=== PATIENT | female | born 1965 | race Caucasian/White ===

== ENCOUNTER 2024-03-03 11:11 | Emergency (ER) | payer BC, SELFPAY ==
[2024-03-03 11:39] VITALS: BP 113/81; PULSE 109; RESP 18; TEMP 35.8; O2SAT 97; BMI 28.1
[2024-03-03] MEDS: ONDANSETRON ODT 4 MG TAB PO (11:48)
[2024-03-03 12:26] LABS: PCR FLU A Negative PCR FLU A (Negative); PCR FLU B Negative PCR FLU B (Negative); PCR RSV Negative PCR RSV (Negative); SARS PCR* Negative SARS-CoV-2 (Negative)
--- NOTE | 2024-03-03 12:59 | ED.GENADULT ---
HPI - General Adult General Chief complaint: Nausea/Vomiting Stated complaint: Vomiting, body aches, congestion Time Seen by Provider: 03/03/24 12:19 Source: patient Mode of arrival: ambulatory Limitations: no limitations History of Present Illness HPI narrative: 58-year-old female coming in today complaining of vomiting for the last 4 days. She has been able to keep down fluids for the last day and a half for so but has not been eating. She denies diarrhea. She feels sweaty but denies any measured fevers. She denies any chest or abdominal pain. She is not short of breath. She has some mild abdominal discomfort with vomiting. She complains of body aches. Denies any blood in her vomitus. No skin rashes. She she denies dysuria, increased urinary frequency or urgency. Related Data Home Medications ?Medication ?Instructions ?Recorded ?Confirmed aripiprazole 10 mg tablet 10 mg PO DAILY 03/03/24 03/03/24 buspirone 10 mg tablet 10 mg PO 3XD 03/03/24 03/03/24 dextroamphetamine-amphetamine ER 1 cap PO QAM 03/03/24 03/03/24 25 mg 24hr capsule,extend release gabapentin 800 mg tablet 800 mg PO 3XD 03/03/24 03/03/24 hydroxyzine HCl 25 mg tablet 25 - 50 mg PO 3XD PRN 03/03/24 03/03/24 lisdexamfetamine 40 mg capsule mg PO 03/03/24 lisinopril 10 mg tablet 10 mg PO DAILY 03/03/24 03/03/24 rosuvastatin 10 mg tablet 10 mg PO QPM 03/03/24 03/03/24 trazodone 100 mg tablet 100 - 300 mg PO QPM PRN 03/03/24 03/03/24 venlafaxine 150 mg mg PO 03/03/24 capsule,extended release 24 hr Previous Rx's ?Medication ?Instructions ?Recorded ondansetron HCl 4 mg tablet 4 mg PO TID PRN nausea and 03/03/24 vomiting #10 tabs Allergies Allergy/AdvReac Type Severity Reaction Status Date / Time No Known Drug Allergies Allergy Verified 03/03/24 11:37 Review of Systems Status of ROS: Reports: 10 or more systems reviewed and unremarkable except as noted in History and below PFSH PFS Social History Smoking Status: Current every day smoker Second hand tobacco smoke exposure: Yes How often do you have a drink containing alcohol: 2-4 times a month AUDIT-C Alcohol total score: 2 Non-prescribed substance use: denies use service: No Exam Narrative: Exam Narrative: Well-nourished well-developed patient in no acute distress. Alert and oriented. Answers questions appropriately. Mood and affect are appropriate. Thoughts are goal oriented and rational. No tangential or magical thinking noted. Patient speaks in full sentences without needing to catch her breath. HEENT: Normocephalic atraumatic. Pupils are equally round reactive to light. Extraocular muscles are intact. Conjunctivae are moist without any icterus noted. Moist mucous membranes. Posterior pharynx is normal. Neck is soft without any lymphadenopathy or thyromegaly. No masses are appreciated. Cardiovascular: Slightly tachycardic, no murmurs. Lungs: Clear to auscultation bilaterally no wheezes rhonchi or rales are appreciated. Patient takes deep breaths without any discomfort. Abdomen: Soft and nontender nondistended with normal bowel sounds. No guarding or rebound. Extremities: Bilateral lower extremities are without edema. Skin: Well perfused without any obvious rashes. Const: Vital Signs, click to edit/add: Vital Signs - 24 hr 03/03/24 11:39 Temperature 96.5 F L Pulse Rate [Pulse Oximeter] 109 H Respiratory Rate 18 Blood Pressure [Ri ght Upper Arm] 113/81 Pulse Oximetry 97 Oxygen Delivery Me thod Room Air Course Course ED Course: IV established and patient received Zofran and 1 L of normal saline. Triple swab negative. Normal lactate. CBC shows normal white cell count, hemoglobin is slightly elevated at 17,000 thousand. Chemistries are unremarkable aside from low carbon dioxide at 12. LFTs are minimally elevated. Normal lipase. UA is suggestive of dehydration with dark yellow urine and 3+ ketones, 3+ bilirubin 2+ protein. Patient was feeling better after treatment. Vital Signs Vital signs: Initial Vital Signs Temperature 96.5 F L 03/03/24 11:39 Temperature Source Temporal Artery Scan 03/03/24 11:39 Pulse Rate 109 H 03/03/24 11:39 Respiratory Rate 18 03/03/24 11:39 Blood Pressure 113/81 03/03/24 11:39 Blood Pressure Mean 91 03/03/24 11:39 Pulse Oximetry 97 03/03/24 11:39 Oxygen Delivery Method Room Air 03/03/24 11:39 Vital Signs Temperature 96.5 F L 03/03/24 11:39 Pulse Rate 109 H 03/03/24 11:39 Respiratory Rate 18 03/03/24 11:39 Blood Pressure 113/81 03/03/24 11:39 Pulse Oximetry 97 03/03/24 11:39 Oxygen Delivery Method Room Air 03/03/24 11:39 Temperature 96.5 F L 03/03/24 11:39 Pulse Rate 109 H 03/03/24 11:39 Respiratory Rate 18 03/03/24 11:39 Blood Pressure 113/81 03/03/24 11:39 Pulse Oximetry 97 03/03/24 11:39 Oxygen Delivery Method Room Air 03/03/24 11:39 Medications Administered Medications: Discontinued Medications Generic Name Dose Route Start Last Admin Trade Name Freq PRN Reason Stop Dose Admin Sodium Chloride 1,000 mls @ 1,000 mls/hr 03/03/24 12:30 03/03/24 13:36 0.9 % Sodium Chloride 1000 Ml IV 03/03/24 13:29 Infused .Q1H YOSELIN Infusion Ondansetron HCl 4 mg 03/03/24 11:45 03/03/24 11:48 Ondansetron Odt 4 Mg Tab PO 03/03/24 11:46 4 mg ONCE ONE Administration Medical Decision Making MDM Narrative Medical decision making narrative: 58-year-old female with vomiting, likely viral enteritis. Patient will be sent home on Zofran. We discussed frequent small volume hydration throughout the day and reasons for follow-up. Lab Data Lab results reviewed: Yes I reviewed the patient's lab results Labs: Lab Results 03/03/24 03/03/24 03/03/24 Range/Units 11:43 13:05 13:45 WBC 7.69 (4.50-11.00) K/uL RBC 4.76 (4.00-5.20) m/uL Hgb 17.0 H (12.0-16.0) gm/dL Hct 49.1 (33.0-51.0) % MCV 103 H (80-100) fL MCH 36 H (26-34) pg MCHC 35 (32-36) gm/dL RDW Coeff of Dominique 12.6 (11.5-15.5) % Plt Count 253 (140-440) K/uL Neut % (Auto) 68.1 (42.0-72.0) % Lymph % (Auto) 20.2 (20-44) % [place] % (Auto) 8.8 (0.0-11.0) % Eos % (Auto) 1.7 (0.0-7.0) % Baso % (Auto) 0.7 (0.0-3.0) % Neut # (Auto) 5.24 (1.7-7.0) K/uL Lymph # (Auto) 1.55 (0.90-2.90) K/uL [place] # (Auto) 0.70 (0.00-0.90) K/UL Eos # (Auto) 0.13 (0.00-0.50) K/uL Baso # (Auto) 0.05 (0.00-0.30) K/uL Abs Immat Gran (auto) 0.04 (0.00-0.30) K/uL Imm/Tot Granulo (auto) 0.5 % Sodium 136 (135-149) mmol/L Potassium 4.2 (3.6-5.1) mmol/L Chloride 110 (96-114) mmol/L Carbon Dioxide 12 L (20-32) mmol/L Anion Gap 14 (7-15) mEq/L BUN 14 (7-30) mg/dL Creatinine 0.6 (0.5-1.5) mg/dL Estimated Creat Clear 105.51 Estimated GFR 103 ml/min Glucose 113 (60-115) mg/dL Lactate 1.1 (0.5-1.9) mmol/L Calcium 10.5 (8.4-10.6) mg/dL Total Bilirubin 0.9 (0.1-1.5) mg/dL Direct Bilirubin 0.4 (0.0-0.5) mg/dL AST 51 H (12-35) U/L ALT 67 H (4-35) U/L Alkaline Phosphatase 127 (40-150) U/L Total Protein 7.8 (6.0-8.3) g/dL Albumin 4.8 (3.3-5.0) g/dL Lipase 82 (23-300) U/L Urine Color Dark yellow (Yellow) Urine Appearance Clear (Clear) Urine pH 6.0 (5.0-8.5) Ur Specific [place] 1.025 (1.000-1.030) Urine Protein 2+ A (Negative) Urine Glucose (UA) Negative (Negative) Urine Ketones 3+ A (Negative) Urine Blood Trace-lysed A (Negative) Urine Nitrite Negative (Negative) Urine Bilirubin 3+ A (Negative) Urine Urobilinogen 0.2 (0.2-1.0) Ur Leukocyte Esterase Negative (Negative) Urine RBC 0-2 (0-2) Urine WBC 0-2 (0-5) Ur Squamous Epith Cells Few (None-Few) Urine Bacteria Few A (None) SARS-CoV-2 (PCR) Negative SARS-CoV-2 (Negative) Influenza Type A (PCR) Negative PCR FLU A (Negative) Influenza Type B (PCR) Negative PCR FLU B (Negative) RSV (PCR) Negative PCR RSV (Negative) Discharge Plan Discharge Clinical Impression: Gastroenteritis, Dehydration Patient Disposition: Home, Self-Care Condition: Stable Instructions: Dehydration (ED), Gastroenteritis (ED) Additional Instructions: Okay to take Zofran as needed for nausea and vomiting. Prescriptions: New ondansetron HCl 4 mg tablet 4 mg PO TID PRN (Reason: nausea and vomiting) Qty: 10 0RF No Action venlafaxine 150 mg capsule,extended release 24hr PO gabapentin 800 mg tablet 800 mg PO 3XD trazodone 100 mg tablet 100 - 300 mg PO QPM PRN buspirone 10 mg tablet 10 mg PO 3XD lisinopril 10 mg tablet 10 mg PO DAILY hydroxyzine HCl 25 mg tablet 25 - 50 mg PO 3XD PRN dextroamphetamine-amphetamine 25 mg capsule,extended release 24hr 1 cap PO QAM aripiprazole 10 mg tablet 10 mg PO DAILY rosuvastatin 10 mg tablet 10 mg PO QPM lisdexamfetamine 40 mg capsule PO Follow Up/Referrals: Parul Red PA-C [Primary Care Provider] - Stand Alone Forms: MyHealth Info Instructions
[2024-03-03] MEDS: 0.9 % SODIUM CHLORIDE 1000 ml 1,000 ML IV (13:00)
[2024-03-03 13:12] LABS: Lactate* 1.1 mmol/L (0.5-1.9)
[2024-03-03 13:13] LABS: Basophils Absolute Auto 0.05 K/uL (0.00-0.30); Basophils Percent Auto 0.7 % (0.0-3.0); Eosinophils Absolute Auto 0.13 K/uL (0.00-0.50); Eosinophils Percent Auto 1.7 % (0.0-7.0); Hematocrit 49.1 % (33.0-51.0); Immature Granulocytes Abs Auto 0.04 K/uL (0.00-0.30); Immature Granulocytes Pct Auto 0.5 %; Lymphocytes Absolute Auto 1.55 K/uL (0.90-2.90); Lymphocytes Percent Auto 20.2 % (20-44); Mean Corpuscular HGB Conc 35 gm/dL (32-36); Mean Corpuscular Hemoglobin 36 pg (26-34); Mean Corpuscular Volume 103 fL (80-100); Monocytes Percent Auto 8.8 % (0.0-11.0); Neutrophils Absolute Auto 5.24 K/uL (1.7-7.0); Neutrophils Percent Auto 68.1 % (42.0-72.0); Platelet Count* 253 K/uL (140-440); RDW Coefficient of Variation % 12.6 % (11.5-15.5); Red Blood Count 4.76 m/uL (4.00-5.20); White Blood Count* 7.69 K/uL (4.50-11.00)
[2024-03-03 13:27] LABS: Slide Review Reflex No
[2024-03-03 13:29] LABS: Albumin* 4.8 g/dL (3.3-5.0); Chloride* 110 mmol/L (96-114)
[2024-03-03 13:30] LABS: Potassium* 4.2 mmol/L (3.6-5.1); Sodium* 136 mmol/L (135-149)
[2024-03-03 13:32] LABS: Anion Gap 14 mEq/L (7-15); Carbon Dioxide* 12 mmol/L (20-32); Creatinine* 0.6 mg/dL (0.5-1.5); Est. Creatinine Clearance* 105.51; Estimated Glomerular Filt Rate 103 ml/min; Total Protein* 7.8 g/dL (6.0-8.3)
[2024-03-03 13:33] LABS: Alanine Aminotransferase* 67 U/L (4-35); Alkaline Phosphatase* 127 U/L (40-150); Aspartate Amino Transferase* 51 U/L (12-35); Bilirubin Direct* 0.4 mg/dL (0.0-0.5); Bilirubin Total* 0.9 mg/dL (0.1-1.5); Blood Urea Nitrogen* 14 mg/dL (7-30); Calcium* 10.5 mg/dL (8.4-10.6); Glucose* 113 mg/dL (60-115); Lipase* 82 U/L (23-300)
[2024-03-03 13:56] LABS: Appearance Urine Clear (Clear); Bilirubin Urine 3+ (Negative); Blood Urine Trace-lysed (Negative); Color Urine Dark yellow (Yellow); Glucose Urine Negative (Negative); Ketones Urine 3+ (Negative); Leukocyte Esterase Urine Negative (Negative); Nitrite Urine Negative (Negative); Protein Urine 2+ (Negative); Specific Gravity Urine 1.025 (1.000-1.030); Urobilinogen Urine 0.2 (0.2-1.0)
[2024-03-03 14:18] LABS: Bacteria Urine Few; RBC Urine 0-2 (0-2); Squamous Epithelial Cell Urine Few (None-Few); WBC Urine 0-2 (0-5)
[2024-03-03 15:05] VITALS: BP 115/83; PULSE 98; RESP 16
== END 2024-03-03 15:06 | disposition home or self-care (01) ==
PROVIDERS: Emergency Provider Family Medicine; PCP Physician Assistant Medical
DX: K52.9 Noninfective gastroenteritis and colitis, unspecified (principal)
CPT/HCPCS: 36415; 80048; 80076; 81001; 83605; 83690; 85025; 87086; 87631; 99283; 99284; A9270; J7030